=== PATIENT | male | born 1955 | race Caucasian/White ===

== ENCOUNTER → 2019-05-20 10:37 | Outpatient (CLI) | payer MEDICARE, SELFPAY ==
[2019-05-20 12:25] LABS: Hemoglobin 17.3 g/dL (13.0-16.5); Mean Corp Hgb Conc 33.3 g/dL (32-36); Mean Corpuscular Hgb 32.4 pg (27.0-32.0); Mean Corpuscular Volume 97.4 fL (80-94); Platelet Count 166 K/mm3 (150-450); RBC Distribution Width CV 12.4 % (11.6-14.6); RBC Distribution Width SD 44.7 fl (35.1-43.9); Red Blood Count 5.34 M/mm3 (4.6-6.2); White Blood Count 7.2 K/mm3 (4.4-11.0)
[2019-05-20 13:00] LABS: AST(SGOT) 73 U/L (15-37); Alanine Aminotransfer ALT/SGPT 99 U/L (16-61); Albumin, Serum 3.8 g/dL (3.2-5.0); Alkaline Phosphatase 79 U/L (45-117); Anion Gap 7 (5-15); BUN 7 mg/dL (7-18); BUN/Creat Ratio 7.8 RATIO (10-20); Calcium,Total 9.1 mg/dL (8.5-10.1); Chloride 100 mmol/L (98-107); EST Glomerular Filtration Rate 90 mL/min (>60); Est Glom Filt Rate - Afr Amer 109 mL/min (>60); Glucose 85 mg/dL (74-106); Potassium 4.9 mmol/L (3.5-5.1); Protein, Total 7.8 g/dL (6.4-8.2); Sodium Level 136 mmol/L (136-145); Thyroid Stim Hormone (TSH) 5.03 uIU/mL (0.358-3.74)
== END ==
PROVIDERS: Family Provider Preventive Medicine Occupational Medicine; PCP Preventive Medicine Occupational Medicine; Referring Provider Internal Medicine Gastroenterology; Visit Provider Internal Medicine Gastroenterology
DX: R10.9 Unspecified abdominal pain (principal)
CPT/HCPCS: 36415; 80053; 84436; 84443; 85027; 86140

== ENCOUNTER 2020-08-23 10:32 | Day surgery (SDC) | payer MEDICARE, SELFPAY ==
[2020-08-23] VITALS (8 sets, daily range): BP systolic 108–129; BP diastolic 63–83; PULSE 65–103; RESP 16–20; TEMP 36.7–37.7; O2SAT 95–97; BMI 23.3
[2020-08-23] MEDS: Ipratropium/Albuterol Sulfate 3 ML AMPUL.NEB INHALATION ×2 (10:58→13:19)
--- NOTE | 2020-08-23 12:38 | DCINST_ITS ---
You will use the following diet at home:: No restrictions Your food should be the consistency of: Regular Discharge Activity: Return to Normal Activity Call your doctor if your incision/area has: Increased Pain/ Swelling Allergies/Adverse Reactions: Allergies No Known Allergies Allergy (Verified 08/19/20 10:41) Medications to take at Discharge Albuterol Inhaler [Ventolin Hfa (SP)] 1 - 2 puff INHALATION Q6H PRN PRN 08/19/20 L.acidoph,Paracasei, B.lactis [Probiotic] 1 ea PO DAILY 08/19/20 Umeclidinium Brm/Vilanterol Tr [Anoro Ellipta 62.5-25 Mcg INH] 1 ea IH DAILY 08/19/20 Primary Care Physician: Cesar Castillo DO [Primary Care Provider] - Test Results: Test results from this visit will be discussed in further detail at your follow- up appointment, if applicable. Please Follow Up With: Fadi Bojorquez MD When: 1 month
--- NOTE | 2020-08-23 12:39 | PCM.OPRPT ---
Problem List (1) Vocal cord paralysis, unilateral complete Status: Chronic Report of Operation Date of Procedure: 08/23/20 Pre-Operative Diagnosis: right vocal cord immobility Post-Operative Diagnosis: right vocal cord immobility Surgery/Procedure Performed:: diagnostic laryngoscopy with injection of right vocal cord; use of operative telescope Type of Anesthesia:: General Description of Procedure: on the day of the procedure, after appropriate informed consent was obtained, the patient was brought to the operating room and placed in supine position on the operating table. he was placed under general endotracheal anesthesia by the anesthesiologist. the endotracheal tube was secured, the eyes were taped. the table was rotated 90 degrees toward the anesthesiologist. a felix laryngoscope was inserted and suspended from the kim stand; a good glottic view was obtained. there were no laryngeal lesions. the right true vocal cord was injected with 0.8 cc prolaryn plus lateral to the junction of the anterior 2/3 and posterior 1/3. the cord was fully medialized. the table was rotated back and the patient was awoken from general anesthesia. he was transferred to the PACU in stable condition.
== END 2020-08-23 14:13 | disposition home or self-care (01) ==
LOC: SDC 10:35 → AC 10:36
PROVIDERS: PCP Preventive Medicine Occupational Medicine; Referring Provider Otolaryngology; Visit Provider Otolaryngology
PROC: (CPT 31571; principal; 2020-08-23 11:45)
DX: J38.01 Paralysis of vocal cords and larynx, unilateral (principal); K58.9 Irritable bowel syndrome, unspecified; F17.200 Nicotine dependence, unspecified, uncomplicated
CPT/HCPCS: 00320; 31571; 94640; J7120; A4216; J2405

== ENCOUNTER → 2020-12-15 | Outpatient (CLI) | payer MEDICARE, SELFPAY ==
[2020-08-23 11:20] VITALS: BMI 23.3
--- NOTE | 2020-12-15 | IMM_PTH ---
PATIENT: RENETTA RAMIRES LOC: [facility] U#:[id number] AGE/SX: 65/M ROOM: RE12/15/[address]: Dr. Lul Guerrero MD : 1955 BED: DIS: 12/15/2020 SPEC #: [id number] RECD: 12/16/20 09:04 STATUS: [place] REJessica #: [id number] JULIETA: 12/15/20 00:[address]: Lul Guerrero DEPT: IMMUNOHISTOCHEMISTRY RECD BY: Asia Domingo ENTERED: 12/16/20 09:05 SP TYPE: IMMUNO OTHR DR: MD Dr. Cesar Ji DO Tissues: Stomach, NOS Procedures: H Pylori (initial) PHYSICIAN & INSTITUTION [facility] [id number] SPECIMEN INFORMATION: Tissue Source: Antral biopsy Clinical Info: Throat cancer Specimen Number: [id number] CPT code: 88492 METHODOLOGY: Deparaffinized sections of prefer/formalin-fixed tissue or PAP/DQ stained slides are incubated with monoclonal/polyclonal antibodies/oligonucleotide probes. Localization is made via biotin free immunoperoxidase method. Appropriate controls are performed and reacted as expected. Results on target cell population are indicated in the following table: RESULTS: ANTIBODY / CLONE RESULT H Pylori (polyclonal) negative These tests were developed and their performance characteristics determined by [facility]. They may not have been cleared or approved by the [place]. Food and Drug Administration. The FDA has determined that such clearance or approval is not necessary. INTERPRETATION: Antral biopsy: Negative for Helicobacter pylori organisms. KENNEDY:steven 12/19/2020
--- NOTE | 2020-12-15 08:07 | EGD_PTH ---
PATIENT: RENETTA RAMIRES LOC: [facility] U#:[id number] AGE/SX: 65/M ROOM: RE12/15/[address]: Dr. Lul Guerrero MD : 1955 BED: DIS: 12/15/2020 SPEC #: [id number] RECD: 12/15/20 14:48 STATUS: [place] REJessica #: [id number] JULIETA: 12/15/20 08:[address]: Lul Guerrero DEPT: SURGICAL PATHOLOGY RECD BY: Mireille Villanueva ENTERED: 12/16/20 08:58 SP TYPE: EGD BIOPSY OT DR: MD Dr. Cesar Ji, Tissues: Gastric mucous membrane Procedures: Surgery Specimen Level IV HEADER OPERATION: EGD with biopsy PRE-OP DIAGNOSIS: Throat cancer TISSUE SUBMITTED: Antral biopsy H/H MICROSCOPIC DIAGNOSIS Antral biopsy: Mild gastritis. See microscopic description and comment. SJ:steven 12/19/2020 COMMENT The results of immunohistochemistry for Helicobacter pylori will be reported separately ([id number]). MICROSCOPIC DESCRIPTION Slides are reviewed. The specimen shows fragments of gastric mucosa with chronic inflammatory cell infiltrates in the lamina propria consisting of lymphocytes and plasma cells, consistent with mild chronic gastritis. GROSS DESCRIPTION Received in fixative is one container labeled with the patient's name and designated antral biopsy. The specimen consists of one irregular fragment of light villasenor soft tissue that measures 0.3 x 0.3 x 0.1 cm. The specimen is totally submitted in one cassette. / AM:steven 12/16/20 TC:3 CPT: 58795
== END | disposition home or self-care (01) ==
LOC: LABSPEC 15:09
PROVIDERS: PCP Preventive Medicine Occupational Medicine; Visit Provider Surgery
DX: K29.70 Gastritis, unspecified, without bleeding (principal)
CPT/HCPCS: 88305; 88342

== ENCOUNTER → 2022-09-12 | Outpatient (CLI) | payer MEDICARE, SELFPAY ==
--- NOTE | 2022-09-12 09:29 | RAD_ITS ---
STUDY: X-RAY - ESOPHAGUS (BARIUM SWALLOW) WITH FLUOROSCOPY REASON FOR EXAM: Male, 67 years old. DYSPHAGIA for solids and liquids. History of a laryngeal carcinoma. TECHNIQUE: 30 view(s) of the esophagus were obtained following swallowing of barium. FLUOROSCOPY TIME (if supplied): (1 minute and 12 seconds) minutes/seconds. 11.58 mGy COMPARISON: None. FINDINGS: There is no demonstrated esophageal foreign body. There is narrowing in the proximal portion of the esophagus. The patient ingested a 12 mm tablet of barium. The tablet the strap narrowing. Normal gastroesophageal junction, without a demonstrated hiatal hernia. There is atherosclerotic calcification of the aortic arch with tortuosity of the descending aorta. Normal visualized pulmonary parenchyma. Normal visualized osseous structures of the thorax. RAD/Esophagus Dual Contrast IMPRESSION: Diffuse narrowing in the proximal esophagus with trapping of the 12 mm tablet at bedtime. Electronically Signed: Alban Ravi MD at 14:39 EST ,
== END | disposition home or self-care (01) ==
LOC: RAD 09:24
PROVIDERS: PCP Preventive Medicine Occupational Medicine; Visit Provider Internal Medicine Gastroenterology
DX: R13.10 Dysphagia, unspecified (principal)
CPT/HCPCS: 74221

== ENCOUNTER → 2024-02-17 | Outpatient (CLI) | payer MEDICARE, SELFPAY ==
--- NOTE | 2024-02-17 14:25 | RAD_ITS ---
STUDY: X-RAY - ABDOMEN/PELVIS REASON FOR EXAM: Male, 68 years old. Abdominal pain. TECHNIQUE: Single AP view of the abdomen / pelvis on 2 images. COMPARISON: None. FINDINGS: Normal visualized lung bases. Normal bowel gas pattern with air seen to the rectum. No disproportionate dilatation of bowel. Moderate amount of feces in the colon. The visualized liver, spleen and kidneys are grossly normal in size and morphology. Normal soft tissue structures. Normal visualized osseous structures. RAD/Abdomen Single View IMPRESSION: No acute abnormality identified. Electronically Signed: Brenden Luciano MD at 14:46 EDT ,
== END | disposition home or self-care (01) ==
PROVIDERS: PCP Preventive Medicine Occupational Medicine; Referring Provider Internal Medicine Gastroenterology; Visit Provider Internal Medicine Gastroenterology
DX: R10.9 Unspecified abdominal pain (principal)
CPT/HCPCS: 74018